=== PATIENT | male | born 1980 | race Hispanic/Latino ===

== ENCOUNTER → 2017-05-20 | Outpatient (CLI) | payer OTHER | LOC: M PAIN 13:15 | DX: G89.29 Other chronic pain (principal); M54.2 Cervicalgia; M54.5 Low back pain; F17.200 Nicotine dependence, unspecified, uncomplicated; Z88.8 Allergy status to other drugs, medicaments and biological substances; Z79.899 Other long term (current) drug therapy | CPT/HCPCS: G0463 ==

== ENCOUNTER → 2017-08-12 | Outpatient (CLI) | payer OTHER | LOC: M PAIN 13:15 | DX: M47.816 Spondylosis without myelopathy or radiculopathy, lumbar region (principal); M43.02 Spondylolysis, cervical region; E29.1 Testicular hypofunction; F17.210 Nicotine dependence, cigarettes, uncomplicated; Z79.899 Other long term (current) drug therapy; Z88.8 Allergy status to other drugs, medicaments and biological substances | CPT/HCPCS: G0463 ==

== ENCOUNTER → 2017-10-14 | Outpatient (CLI) | payer OTHER | LOC: M PAIN 09:45 | DX: M47.816 Spondylosis without myelopathy or radiculopathy, lumbar region (principal); M43.02 Spondylolysis, cervical region; G89.29 Other chronic pain; Z79.01 Long term (current) use of anticoagulants; Z79.899 Other long term (current) drug therapy; Z88.8 Allergy status to other drugs, medicaments and biological substances; Z86.711 Personal history of pulmonary embolism; Z87.891 Personal history of nicotine dependence | CPT/HCPCS: G0463 ==

== ENCOUNTER → 2018-05-07 | Outpatient (CLI) | payer OTHER ==
[2018-05-13 00:30] LABS: PROTEIN C FUNCTIONAL ACTIVITY 124 % (73-180)
[2018-05-13 00:30] LABS: PROTEIN S ANTIGEN FREE 103 % (57-157); PROTEIN S ANTIGEN TOTAL 65 % (60-150); PROTEIN S FUNCTIONAL ACTIVITY 138 % (63-140)
== END ==
LOC: M SMT 14:45
DX: I26.99 Other pulmonary embolism without acute cor pulmonale (principal)
CPT/HCPCS: 85306

== ENCOUNTER → 2018-05-13 | Outpatient (CLI) | payer OTHER ==
[~2018-05-13] MED LIST: METHACHOLINE KIT (J7674) INH
== END ==
LOC: M CARPUL 08:19
DX: R06.00 Dyspnea, unspecified (principal)
CPT/HCPCS: J7674

== ENCOUNTER 2018-06-12 08:05 | Outpatient (RCR) | payer OTHER ==
[2018-06-12] MEDS ORDERED: TIZA2CAP PO (10:22)
[2018-06-12] MEDS ORDERED: PANT40TA3 (10:22)
[2018-06-12] MEDS ORDERED: METH1TAB40 PO (11:10)
[2018-06-12] MEDS ORDERED: LIDO5DIS41 TD (11:10)
== END 2018-07-10 ==
LOC: M PR 08:05
PROVIDERS: ATTEND General Practice
DX: I26.99 Other pulmonary embolism without acute cor pulmonale (principal)

== ENCOUNTER 2018-06-12 10:14 | Emergency (ER) | payer OTHER ==
[~2018-06-12] VITALS: Ht 180.3 cm; Wt 87.3 kg
[2018-06-12] MEDS ORDERED: PANT40TA3 (10:22)
[2018-06-12] MEDS ORDERED: TIZA2CAP PO (10:22)
[2018-06-12] MEDS ORDERED: LIDO5DIS41 TD (11:10)
[2018-06-12] MEDS ORDERED: METH1TAB40 PO (11:10)
[2018-06-12 11:35] VITALS: BP 107/64
--- NOTE | 2018-06-12 11:37 | REP ---
Duplex extremity venous ultrasound: Bilateral lower extremity. History: Calf and posterior thigh pain. Question DVT. History of pulmonary embolus. Findings: The deep veins are anechoic and fully compressible from the groin to the popliteal fossa in the left and right lower extremity. Color flow imaging is homogeneous. Spectral Doppler interrogation demonstrates intact respiratory variation in flow and normal manual augmentation of flow. There is no evidence of deep vein thrombosis. Impression: Negative bilateral lower extremity duplex venous ultrasound. No evidence of deep vein thrombosis. Electronically Signed by Jairo Light MD 06/12/2018 11:30 A
== END 2018-06-12 11:37 | disposition home or self-care (01) ==
LOC: M ED 10:14
DX: S86.911A Strain of unspecified muscle(s) and tendon(s) at lower leg level, right leg, initial encounter (principal); S86.912A Strain of unspecified muscle(s) and tendon(s) at lower leg level, left leg, initial encounter; M62.838 Other muscle spasm; X58.XXXA Exposure to other specified factors, initial encounter; Y92.9 Unspecified place or not applicable; Y93.9 Activity, unspecified; Y99.9 Unspecified external cause status; Z86.711 Personal history of pulmonary embolism; Z79.899 Other long term (current) drug therapy; Z88.8 Allergy status to other drugs, medicaments and biological substances

== ENCOUNTER 2018-10-29 14:55 | Emergency (ER) | payer OTHER ==
[~2018-10-29] VITALS: Ht 175.3 cm; Wt 90.8 kg
[~2018-10-29 14:55] MED LIST changes: +LIDO5DIS41 TD; +METH1TAB40 PO; -METHACHOLINE KIT (J7674) INH; +PANT40TA3; +TIZA2CAP PO
[2018-10-29] MEDS ORDERED: TRAM50TA2 PO (15:06)
[2018-10-29] MEDS ORDERED: NAPR250T4 PO (15:06)
--- NOTE | 2018-10-29 16:19 | REP ---
Chest one-view HISTORY: Chest pain Comparison: None The lungs are clear. The heart is normal in size. The pulmonary vasculature is normal in appearance. Impression: No acute disease. Electronically Signed by Antoine Davis MD 10/29/2018 04:10 P
[2018-10-29 16:26] LABS: HEMATOCRIT 42.2 % (42.0-52.0); HEMOGLOBIN 14.1 g/dl (13.5-17.5); MEAN CORPUSCULAR HEMOGLOBIN 27.5 pg (27.0-33.0); MEAN CORPUSCULAR HGB CONC 33.4 g/dl (32.0-36.5); MEAN CORPUSCULAR VOLUME 82.3 fl (80.0-96.0); PLATELET COUNT, AUTOMATED 276 10^3/uL (150-450); RED BLOOD COUNT 5.13 10^6/uL (4.30-6.10); WHITE BLOOD COUNT 6.8 10^3/uL (4.0-10.0)
[2018-10-29 16:37] LABS: INR 1.03; PROTHROMBIN TIME 13.6 SECONDS (12.1-14.4)
[2018-10-29 16:40] LABS: BLOOD UREA NITROGEN 9 MG/DL (7-18); CALCIUM LEVEL 8.4 MG/DL (8.5-10.1); CARBON DIOXIDE LEVEL 30 MEQ/L (21-32); CHLORIDE LEVEL 103 MEQ/L (98-107); CREATININE FOR GFR 0.95 MG/DL (0.70-1.30); GLOMERULAR FILTRATION RATE > 60.0 (>60); GLUCOSE, FASTING 82 MG/DL (70-100); POTASSIUM SERUM 4.1 MEQ/L (3.5-5.1); SODIUM LEVEL 139 MEQ/L (136-145)
--- NOTE | 2018-10-29 16:46 | REP ---
Clinical: Left calf pain . Technique: Kothari scale and color Doppler evaluation using linear high frequency transducer. Findings: Ultrasound examination of the left lower extremity deep venous structures from the common femoral vein to the popliteal vein demonstrates normal compressibility flow and wave patterns in response to respiration and augmentation. There is no evidence for deep venous thrombosis. Impression: No evidence for deep venous thrombosis. Electronically Signed by Jacinto Ferraro MD 10/29/2018 04:38 P
[2018-10-29] MEDS ORDERED: ISOVUE-370 76% 100ML VIAL (Q9967) As Ordered ONE (17:11)
--- NOTE | 2018-10-29 17:39 | REP ---
Clinical: Left-sided chest pain with history of pulmonary embolus. Technique: Axial contrast enhanced images from the thoracic inlet to the upper abdomen using 100 ml Isovue 370 intravenous contrast material with multiplanar re-formations. Comparison: None. Findings: Satisfactory enhancement of the pulmonary vasculature is achieved and no acute filling defects are identified to suggest pulmonary embolus. Thoracic aorta without aneurysm or dissection. Heart and pericardium are normal. The bilateral lung estevez demonstrate mild bibasilar atelectasis (right greater than left). No effusion. No pneumothorax. Tracheobronchial tree is patent. No significant adenopathy. Impression: 1. No evidence for acute pulmonary embolus. 2. Mild bibasilar atelectasis (right greater than left). Electronically Signed by Jacinto Ferraro MD 10/29/2018 05:30 P
[2018-10-29 18:49] VITALS: BP 118/58
== END 2018-10-29 18:51 | disposition home or self-care (01) ==
LOC: M ED 14:55
DX: R07.89 Other chest pain (principal); M79.605 Pain in left leg; Z86.711 Personal history of pulmonary embolism; Z88.8 Allergy status to other drugs, medicaments and biological substances
CPT/HCPCS: 36415; 71045; 71275; 80048; 85027; 85610; 93971; 99284; Q9967